=== PATIENT | male | born 1985 | race Caucasian/White ===

== ENCOUNTER 2016-05-18 07:58 | Outpatient (CLI) ==
[2016-01-30 21:09] VITALS: BMI 42.2
--- NOTE | 2016-05-18 08:28 | DI ---
EXAM: Five views of the lumbar spine HISTORY: Back pain with history of posterior fusion hardware. COMPARISON: MRI lumbar spine 08/17/[address] lumbar spine 05/05/2015 FINDINGS: There is posterior fusion hardware at L4-L5 and the particular screws demonstrating no vivian ency or displaced fracture. Discectomy changes are noted L4-L5 with disc spacer device in place. T here is no acute compression fracture or subluxation. The lumbosacral junction appears intact. Eckert inectomies changes are present at the level of posterior fusion. There is scattered minimal facet a rthropathy in the lower lumbar spine. No lytic or blastic lesion is present. The soft tissues are unremarkable. IMPRESSION: 1. Postoperative changes with interbody fusion at L4-L5 with no evidence of hardware fracture or lo osening. 2. Mild facet arthropathy in the lower lumbar spine with no compression fracture or subluxation.
[2016-05-18 08:34] LABS: BASOPHILS # (AUTO) 0.1 K/uL (0-0.2); BASOPHILS % (AUTO) 0.5 % (0.0-3.0); EOSINOPHILS # (AUTO) 0.3 K/ul (0.0-0.7); EOSINOPHILS % (AUTO) 2.9 % (0.0-7.0); HEMATOCRIT 47.3 % (42.0-52.0); HEMOGLOBIN 16.1 g/dl (14.0-18.0); IMMATURE GRANULOCYTE % (AUTO) 0.9 % (0.0-5.0); LYMPHOCYTES # (AUTO) 3.6 K/uL (0.60-3.4); LYMPHOCYTES % (AUTO) 30.5 (10.0-50.0); MEAN CORPUSCULAR HEMOGLOBIN 30.3 pg (27.0-31.0); MEAN CORPUSCULAR VOLUME 89.1 fl (80.0-94.0); MONOCYTES # (AUTO) 0.7 K/uL (0.4-2.0); MONOCYTES % (AUTO) 6.3 (0-10); NEUTROPHILS # (AUTO) 6.9 K/ul (2.0-6.9); NEUTROPHILS % (AUTO) 58.9; PLATELET COUNT 274 10^3/uL (140-440); RED BLOOD COUNT 5.31 10^6/ul (4.70-6.10); WHITE BLOOD COUNT 11.67 K/ul (4.2-10.2)
[2016-05-18 08:42] LABS: PARTIAL THROMBOPLASTIN TIME 24.6 SEC (23.9-40.0); PROTHROMBIN TIME 9.9 SEC (9.3-11.0)
[2016-05-18 09:08] LABS: ALBUMIN 3.6 g/dL (3.4-5.0); ALBUMIN/GLOBULIN RATIO 0.84; ANION GAP 13.1; BILIRUBIN,TOTAL 0.56 mg/dL (0.00-1.20); BUN/CREATININE RATIO 15.11; CALCIUM 9.5 mg/dL (8.2-10.2); CHOL/HDL RATIO 8.8 (4.5-6.4); CREATININE 0.86 mg/dL (0.60-1.10); POTASSIUM 4.1 mmol/L (3.5-5.1); TOTAL PROTEIN 7.9 g/dL (6.4-8.2)
== END 2016-05-18 07:59 | disposition home or self-care (01) ==
LOC: RAD 07:58
PROVIDERS: ATTEND Nurse Practitioner Family
DX: M51.36 Other intervertebral disc degeneration, lumbar region (principal); M54.5 Low back pain; I10 Essential (primary) hypertension; E66.9 Obesity, unspecified; Z91.89 Other specified personal risk factors, not elsewhere classified
CPT/HCPCS: 36415; 80053; 80061; 84439; 84443; 85025; 85610; 85730

== ENCOUNTER 2016-05-21 08:30 | Outpatient (CLI) ==
[2016-01-30 21:09] VITALS: BMI 42.2
--- NOTE | 2016-05-21 11:52 | MRI ---
EXAM: MRI lumbar spine without and with IV contrast. DATE: 05/21/2016. HISTORY: Low back pain. TECHNIQUE: Sagittal and axial T1W and T2W sequences of the lumbar spine along with sagittal IR and coronal T2W sequences were obtained using 1.5 Yue magnet. CONTRAST: Omniscan - 20 ml IV. COMPARISON: L-spine series 05/18/2016. MRI L-spine 08/17/2015. CT L-spine 05 May 2015. FINDINGS: The alignment of the lumbar spine is normal. Previous discectomy, interbody spacer and b ilateral transpedicular screw fixation are evident at L4-5. There is a 2.5 mm anterior subluxation of S1 relative to L5. No other subluxation, acute fracture, osseous malignancy, or pars interarticu david defect is identified. Lumbar vertebra are normal in height. A T2W/T1W bright, 6.4 mm focus i n the L2 body is likely a benign hemangioma. Nonfused intervertebral discs are normal in height. N o sacral fracture or stress reaction is apparent. SI joints are unremarkable. Conus medullaris ter minates at T12-L1. Visible spinal cord reveals no syrinx, cord edema, myelomalacia, or neoplasm. N o abnormal contrast enhancement is identified within the spinal cord, nerve roots, vertebral bodies or intervertebral discs. No retroperitoneal lymphadenopathy, paraspinal mass, or aortic aneurysm is detected. Psoas muscles are normal. There is moderate bilateral posterior paraspinal muscle atrophy at the L5 and S1 levels . Visible portions of the liver, spleen, adrenal glands and kidneys reveal no definitive abnormalit y. Segmental analysis: T12-L1: Normal. L1-2: Normal. L2-3: Dorsal epidural fat causes narrowing the thecal sac and minor central canal stenosis. Each f oramen is patent. L3-4: Minimal posterior to foraminal disc bulge, mild bilateral facet arthropathy, mild ligamentum flavum hypertrophy cause mild central canal stenosis and mild bilateral foraminal encroachment. L4-5: S/P discectomy, interbody spacer, bilateral transpedicular screw fixation, partial left facet resection, partial resection of the L3 spinous process and posterior osseous fusion. No central ca nal stenosis or foraminal stenosis. L5-S1: Minimal anterior subluxation of S1, small pseudodisc bulge, epidural fat, and mild facet art hropathy cause mild thecal sac narrowing and minimal/mild bilateral foraminal stenoses. IMPRESSIONS: 1. Lumbar spine surgical changes at L4-5 - similar to August 2015. 2. Minimal L2-3, mild L3-4, and mild L5-S1 central canal stenosis. 3. Multilevel foraminal narrowing (minimal/mild). 4. Benign hemangioma in the L2 vertebral body.
== END 2016-05-21 08:31 | disposition home or self-care (01) ==
LOC: RAD 08:30
PROVIDERS: ATTEND Nurse Practitioner Family
DX: M54.5 Low back pain (principal)

== ENCOUNTER 2016-05-31 11:51 | Outpatient (CLI) ==
[2016-01-30 21:09] VITALS: BMI 42.2
--- NOTE | 2016-05-31 13:24 | DI ---
EXAM: CHEST FRONTAL AND LATERAL VIEWS HISTORY: Hypertension. COMPARISON: 11/22/2014 FINDINGS: Heart size and mediastinal contour remain within normal limits. No acute infiltrates. Normal vascularity with no pleural fluid or pneumothorax. The bony thorax has no acute finding. IMPRESSION: No acute process.
== END 2016-05-31 11:52 | disposition home or self-care (01) ==
LOC: CAR 11:51
PROVIDERS: ATTEND Nurse Practitioner Family
DX: E78.5 Hyperlipidemia, unspecified (principal); I10 Essential (primary) hypertension; M54.5 Low back pain; M51.36 Other intervertebral disc degeneration, lumbar region; S33.100 Subluxation of unspecified lumbar vertebra
CPT/HCPCS: 93005; 93010

== ENCOUNTER 2016-06-25 06:49 | Outpatient (CLI) ==
[2016-01-30 21:09] VITALS: BMI 42.2
--- NOTE | 2016-06-28 09:10 | ECHO2D ---
Date of Exam: 06/25/2016 Ordering Physician: DR. BALDERAS Reason for Echo: CHEST PAIN, PALPITATIONS M-Mode Normal Adult Results LV Dimensions Normal Adult Results AoV Opening excursions >1.6 >1.6 LVEDD-base- 3.5-5.8 4.8 Ao root dimensions 2.0-3.7 3.3 LVESD-base- 3.1-4.6 L. Atrium dimensions 1.9-3.8 3.4 Post. Wall thickness 0.8-1.1 1.1 IV septum (thickness) 0.7-1.2 1.2 Post. Wall excursion 0.72-1.3 NORMAL Septal motion NORMAL Systolic motion R. Ventricular cavity 1.5-2.0 NORMAL LVEF 60% 56% Paradoxical septal wall motion NORMAL 2-D :2-D M Mode Echocardiogram was performed using apical four chamber and left parasternal long and short axis views. Mitral, tricuspid and aortic valves appear to be normal. Contractility of the left ventricle seems to be normal, so is the cavity size. Left atrial cavity size and aortic root appear to be normal. There is no pericardial effusion. There is no thrombus noted in the left ventricular or left aortic cavity. No mitral valve prolapse noted. M-MODE: MV: NORMAL AV: NORMAL TV: NORMAL PV: CHAMBER SIZE: NORMAL WALL MOTION: NORMAL PERICARDIUM: NORMAL INTERPRETATION: 1. NORMAL LEFT VENTRICULAR CONTRACTILITY 2. NORMAL VALVES MTDD
== END 2016-06-25 06:50 | disposition home or self-care (01) ==
LOC: CAR 06:49
PROVIDERS: ATTEND Internal Medicine
DX: R07.9 Chest pain, unspecified (principal); R00.2 Palpitations

== ENCOUNTER 2016-06-27 06:28 | Outpatient (CLI) ==
[2016-01-30 21:09] VITALS: BMI 42.2
[2016-06-27] MEDS: DOBUTAMINE 250 ML IV ONE (07:10)
[2016-06-27] MEDS: ATROPINE SULFATE PFS ONE (08:09)
--- NOTE | 2016-06-28 09:32 | DOBSTECHO ---
Ordering Physician: DR. ANGIE WAGGONER [facility] Date of Test: 06/27/2016 Reason for Examination: CHEST PAIN, PALPITATIONS, HYPERTENSION Cardiac History: Current Medications: SIMVASTATIN, LISINOPRIL, HYDROCODONE/ACETAMINOPHEN, BACLOFEN Physical Findings: Height: 71" Weight: 320 GLAUCOMA: NO Resting EKG: Target Heart Rate: 162 / 191 OXYGEN SATURATION: 97% AT REST PRE TEST ST Segment Stage Time HR BPM BP mmhg Rhythm +/- Up Down Comments/Symptoms Control Sitting 70 110/88 SR X NONE Dobutamine 250mg/D5W 5cmg/KG/mn 10cmg/KG/mn 3" 96 150/66 SR X NONE 15cmg/KG/mn 2" 102 SR X NONE 20cmg/KG/mn 2" 148 SR X NONE 25cmg/KG/mn 00:17 152 140/60 SR X NONE 30cmg/KG/mn 35cmg/KG/mn 40cmg/KG/mn Time: 3" HR B/P Time: 10" HR B/P Time: HR B/P Recovery 82 148/76 Recovery 76 Recovery Total Time: 7 MINUTES AND 17 SECONDS Duration of Exercise: 7 MINUTES AND 17 SECONDS Maximum Heart Rate Reached: 152 Interpretation: 1. TEST NEGATIVE FOR ISCHEMIC ST-T WAVE CHANGES 2. NO CHEST PAIN OR DISCOMFORT 3. LEFT VENTRICULAR CONTRACTILITY NORMAL WITH DOBUTAMINE INFUSION AND AT REST MTDD
--- NOTE | 2016-06-28 09:37 | ECHOSTRESS ---
Date of Exam: 06/27/2016 Ordering Physician: DR BALDERAS, [facility]- DR. ADAMS, SHIV MCNEAL, AND CLARISSA FULLER Reason for Echo: CHEST PAIN, PALPITATIONS, DOBUTAMINE STRESS=NO ISCHEMIA M-Mode Normal Adult Results LV Dimensions Normal Adult Results AoV Opening excursions >1.6 LVEDD-base- 3.5-5.8 Ao root dimensions 2.0-3.7 LVESD-base- 3.1-4.6 L. Atrium dimensions 1.9-3.8 Post. Wall thickness 0.8-1.1 IV septum (thickness) 0.7-1.2 Post. Wall excursion 0.72-1.3 Septal motion Systolic motion R. Ventricular cavity 1.5-2.0 LVEF 60% Paradoxical septal wall motion 2-D: NORMAL LEFT VENTRICULAR CONTRACTILITY RESTING AND WITH DOBUTAMINE INFUSION M-MODE: MV: AV: TV: PV: CHAMBER SIZE: WALL MOTION: NORMAL LEFT VENTRICULAR CONTRACTILITY RESTING AND WITH DOBUTAMINE INFUSION PERICARDIUM: INTERPRETATION: 1. NORMAL LEFT VENTRICULAR CONTRACTILITY RESTING AND WITH DOBUTAMINE INFUSION MTDD
== END 2016-06-27 06:29 | disposition home or self-care (01) ==
LOC: CAR 06:28
PROVIDERS: ATTEND Internal Medicine
DX: R07.9 Chest pain, unspecified (principal); R00.2 Palpitations

== ENCOUNTER → 2016-08-08 | Outpatient (POV) ==
[2016-01-30 21:09] VITALS: BMI 42.2
== END ==
LOC: OUTPT 00:01
PROVIDERS: ATTEND Otolaryngology
DX: H91.90 Unspecified hearing loss, unspecified ear (principal)
CPT/HCPCS: 92557; 92567

== ENCOUNTER 2016-12-03 14:03 | Outpatient (CLI) ==
[2016-01-30 21:09] VITALS: BMI 42.2
[2016-12-03 14:08] LABS: BASOPHILS # (AUTO) 0.1 K/uL (0-0.2); BASOPHILS % (AUTO) 0.5 % (0.0-3.0); EOSINOPHILS # (AUTO) 0.2 K/ul (0.0-0.7); EOSINOPHILS % (AUTO) 1.8 % (0.0-7.0); HEMATOCRIT 45.8 % (42.0-52.0); HEMOGLOBIN 15.6 g/dl (14.0-18.0); IMMATURE GRANULOCYTE % (AUTO) 0.8 % (0.0-5.0); LYMPHOCYTES # (AUTO) 3.6 K/uL (0.60-3.4); LYMPHOCYTES % (AUTO) 30.1 (10.0-50.0); MEAN CORPUSCULAR HEMOGLOBIN 30.4 pg (27.0-31.0); MEAN CORPUSCULAR HGB CONC 34.1 (31.8-35.4); MEAN CORPUSCULAR VOLUME 89.3 fl (80.0-94.0); MONOCYTES # (AUTO) 0.7 K/uL (0.4-2.0); MONOCYTES % (AUTO) 6.1 (0-10); NEUTROPHILS # (AUTO) 7.3 K/ul (2.0-6.9); NEUTROPHILS % (AUTO) 60.7; PLATELET COUNT 310 10^3/uL (140-440); RED BLOOD COUNT 5.13 10^6/ul (4.70-6.10); WHITE BLOOD COUNT 11.99 K/ul (4.2-10.2)
[2016-12-03 15:02] LABS: ALBUMIN 3.8 g/dL (3.4-5.0); ALBUMIN/GLOBULIN RATIO 0.9; ANION GAP 17.4; BILIRUBIN,TOTAL 0.45 mg/dL (0.00-1.20); BUN/CREATININE RATIO 11.62; CALCIUM 9.9 mg/dL (8.2-10.2); CHOL/HDL RATIO 5.9 (4.5-6.4); CREATININE 0.86 mg/dL (0.60-1.10); POTASSIUM 4.4 mmol/L (3.5-5.1)
== END 2016-12-03 14:04 | disposition home or self-care (01) ==
LOC: LAB 14:03
PROVIDERS: ATTEND Nurse Practitioner Family
DX: I10 Essential (primary) hypertension (principal)
CPT/HCPCS: 36415; 80053; 80061; 84439; 84443; 85025

== ENCOUNTER 2016-12-04 10:00 | Outpatient (CLI) ==
[2016-01-30 21:09] VITALS: BMI 42.2
== END 2016-12-04 10:01 | disposition home or self-care (01) ==
LOC: LAB 10:00
PROVIDERS: ATTEND Nurse Practitioner Family
DX: R73.09 Other abnormal glucose (principal)
CPT/HCPCS: 36415; 82947

== ENCOUNTER 2016-12-07 08:58 | Outpatient (CLI) ==
[2016-01-30 21:09] VITALS: BMI 42.2
--- NOTE | 2016-12-07 10:00 | MRI ---
EXAM: MRI brain without IV contrast. DATE: 07 December 2016. HISTORY: Headaches syndrome. TECHNIQUE: Sagittal T1W, axial T2W, axial FLAIR, axial T1W, axial DWI, and coronal T2W GRE sequence s of the brain were obtained using 1.2 Yue magnet. No IV contrast. COMPARISON: None. FINDINGS: The ventricles, cisterns, and subarachnoid spaces are normal in size and configuration. No midline shift, mass effect or abnormal extra-axial fluid collection is apparent. No acute infarc t, hemorrhage or neoplasm is identified. Minor area of T2W/FLAIR hyperintensity is observed in the white matter abutting the right lateral ventricle near the atrium. The elliott - white matter differen tiation is normal. The 7th/8th cranial nerve complexes, cerebellopontine angles, brainstem, and vis ible cervical spinal cord are normal. There is no cerebellar tonsillar ectopia. The pituitary glan d is normal in size and signal. Corpus callosum is normal in size and configuration. Flow voids ar e present in the major intracranial arteries and in the dural venous sinuses. No aneurysm, AVM or d ural venous sinus thrombosis is apparent. No orbit abnormality is identified. The mastoid air cell s are unremarkable. There is mucosal thickening in multiple ethmoid air cells and partial opacifica tion of some anterior ethmoid air cells bilaterally. Minor mucosal thickening is also demonstrated in the right and left side of the sphenoid sinus. The adenoid tissues are mildly prominent. No nec k mass or lymphadenopathy is detected. No calvarial neoplasm or acute fracture is evident. IMPRESSIONS: 1. 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 DDX: Demyelinating disease, small vessel disease, vasculitis, sequela of infection. 2. No acute infarct, hemorrhage, mass or hydrocephalus. 3. Bilateral ethmoid and sphenoid sinus disease. 4. Mild adenoid hypertrophy appears benign.
== END 2016-12-07 08:59 | disposition home or self-care (01) ==
LOC: RAD 08:58
PROVIDERS: ATTEND Nurse Practitioner Family
DX: G44.89 Other headache syndrome (principal)

== ENCOUNTER 2017-02-06 13:06 | Outpatient (CLI) ==
[2016-01-30 21:09] VITALS: BMI 42.2
[2017-02-06 13:13] LABS: BASOPHILS # (AUTO) 0.1 K/uL (0-0.2); BASOPHILS % (AUTO) 0.5 % (0.0-3.0); EOSINOPHILS # (AUTO) 0.3 K/ul (0.0-0.7); EOSINOPHILS % (AUTO) 2.2 % (0.0-7.0); HEMATOCRIT 45.5 % (42.0-52.0); HEMOGLOBIN 15.4 g/dl (14.0-18.0); IMMATURE GRANULOCYTE % (AUTO) 0.9 % (0.0-5.0); LYMPHOCYTES # (AUTO) 3.5 K/uL (0.60-3.4); LYMPHOCYTES % (AUTO) 29.2 (10.0-50.0); MEAN CORPUSCULAR HEMOGLOBIN 30.4 pg (27.0-31.0); MEAN CORPUSCULAR HGB CONC 33.8 (31.8-35.4); MEAN CORPUSCULAR VOLUME 89.7 fl (80.0-94.0); MONOCYTES # (AUTO) 0.8 K/uL (0.4-2.0); MONOCYTES % (AUTO) 6.3 (0-10); NEUTROPHILS # (AUTO) 7.2 K/ul (2.0-6.9); NEUTROPHILS % (AUTO) 60.9; PLATELET COUNT 296 10^3/uL (140-440); RED BLOOD COUNT 5.07 10^6/ul (4.70-6.10); WHITE BLOOD COUNT 11.84 K/ul (4.2-10.2)
[2017-02-06 13:25] LABS: ALBUMIN 3.5 g/dL (3.4-5.0); ALBUMIN/GLOBULIN RATIO 0.81; ANION GAP 14.2; BILIRUBIN,TOTAL 0.42 mg/dL (0.00-1.20); BUN/CREATININE RATIO 13.09; CALCIUM 9.8 mg/dL (8.2-10.2); CHOL/HDL RATIO 6.8 (4.5-6.4); CREATININE 0.84 mg/dL (0.60-1.10); POTASSIUM 4.2 mmol/L (3.5-5.1); TOTAL PROTEIN 7.8 g/dL (6.4-8.2)
== END 2017-02-06 13:07 | disposition home or self-care (01) ==
LOC: LAB 13:06
PROVIDERS: ATTEND Nurse Practitioner Family
DX: I10 Essential (primary) hypertension (principal)
CPT/HCPCS: 36415; 80053; 80061; 85025

== ENCOUNTER 2017-03-21 09:38 | Outpatient (CLI) ==
[2016-01-30 21:09] VITALS: BMI 42.2
[2017-03-21 10:17] LABS: ALBUMIN 3.5 g/dL (3.4-5.0); BILIRUBIN,DIRECT 0.16 mg/dL (0.00-0.30); BILIRUBIN,TOTAL 0.36 mg/dL (0.00-1.20); TOTAL PROTEIN 7.3 g/dL (6.4-8.2)
== END 2017-03-21 09:39 | disposition home or self-care (01) ==
LOC: LAB 09:38
PROVIDERS: ATTEND Psychiatry & Neurology Neurology
DX: R51 Headache (principal)
CPT/HCPCS: 36415; 80076

== ENCOUNTER 2017-03-22 04:43 | Emergency (ER) ==
[2017-03-22 04:50] VITALS: BP 141/89; TEMP 97.6; BMI 45.6
[2017-03-22] MEDS ORDERED: TORADOL IM STA (05:02)
--- NOTE | 2017-03-22 05:09 | ED.PDOC ---
General ED Provider: Dr. LEANNA ADAMS Chief Complaint: Chest Wall Injury/Pain Stated Complaint: Woke up with right lower chest, hurts to breath. sharp pain. no Injury. Time Seen by Physician: 05:10 Mode of Arrival: Walk-In Information Source: Patient Primary Care Provider: LEANNA ADAMS-[facility] Nursing and Triage Documentation Reviewed and Agree: Yes GI Complaint Exam - Abdominal Pain Complaint/Exam Onset: Sudden Symptoms Are: Still present Timing: Constant Initial Severity: Moderate Current Severity: Moderate Location of Pain: RUQ Character: Reports: Sharp Aggravating: Reports: Movement, Deep breaths Alleviating: Reports: None Associated Signs and Symptoms: Reports: Chest pain. Denies: Diaphoresis, Fever , Cough, Dizziness, Back pain, Constipation, Blood in stool, Dysuria, Urinary frequency, Decreased urine output, Decreased appetite, Discharge, Nausea, Vomiting, Diarrhea, Decreased activity AAA Risk Factors: Reports: None Cardiac Risk Factors: Reports: None Testicular Torsion Risk Factors: Reports: None Surgical Obstruction Risk Factors: Reports: None Related Surgical History: Reports: None Abdominal Findings: Absent: Pulsatile mass, Abdominal distention, Unequal femoral pulses, Rebound tenderness Differential Diagnoses: GB, Other (Pleurisy.) Review of Systems - Review Of Systems Constitutional: Reports: No symptoms Eyes: Reports: No symptoms Ears, Nose, Mouth, Throat: Reports: No symptoms Respiratory: Reports: No symptoms Cardiac: Reports: Chest pain GI: Reports: Abdominal pain : Reports: No symptoms Musculoskeletal: Reports: No symptoms Skin: Reports: No symptoms Neurological: Reports: No symptoms Endocrine: Reports: No symptoms Hematologic/Lymphatic: Reports: No symptoms All Other Systems: Reviewed and Negative Past Medical History - Past Medical History Previously Healthy: Yes Endocrine: Reports: None Cardiovascular: Reports: Hypertension Respiratory: Reports: None Hematological: Reports: None Gastrointestinal: Reports: None Genitourinary: Reports: Kidney stones Neuro/Psych: Reports: None Musculoskeletal: Reports: Arthritis Cancer: Reports: None - Surgical History General Surgical History: Reports: Other (DISCECTOMY AND SPINAL FUSION L4-L5) - Family History Family History: Reports: Unknown - Social History Smoking Status: Current every day smoker, Heavy tobacco smoker Smoking Cessation Counseling Time: > 3 min - 10 min Hx Substance Use: No Alcohol Screening: Occasionally - Immunizations Tetanus Shot up to Date: Yes Physical Exam - Physical Exam Appearance: Well-appearing, No pain distress, Well-nourished Eyes: YAMEL, EOMI, Conjunctiva clear ENT: Ears normal, Nose normal, Oropharynx normal Respiratory: Airway patent, Breath sounds clear, Breath sounds equal, Respirations nonlabored Cardiovascular: RRR, Pulses normal, No rub, No murmur GI/: Soft, No masses, Bowel sounds normal, No Organomegaly, Tender (rt lower rbs,) Musculoskeletal: Normal strength, ROM intact, No edema, No calf tenderness Skin: Warm, Dry, Normal color Neurological: Sensation intact, Motor intact, Reflexes intact, Cranial nerves intact, Alert, Oriented Psychiatric: Affect appropriate, Mood appropriate Interpretation - Radiology Interpretation Radiology Interpretation By: Radiologist Radiology Results: Negative Exam Interpreted: CT Scan Critical Care Note - Critical Care Note Total Time (mins): 20 Course - Course Hematology/Chemistry: 03/22/17 05:45 03/22/17 05:45 Orders, Labs, Meds: Lab Review 03/22/17 03/22/17 03/22/17 05:45 05:45 05:45 WBC 10.71 H RBC 4.95 Hgb 15.0 Hct 44.3 MCV 89.5 MCH 30.3 MCHC 33.9 RDW Coeff of Carlotta 12.5 Plt Count 262 Immature Gran % (Auto) 0.6 Neut % (Auto) 57.1 Lymph % (Auto) 33.5 [place] % (Auto) 6.7 Eos % (Auto) 1.6 Baso % (Auto) 0.5 Immature Gran # (Auto) 0.1 Neut # 6.1 Lymph # 3.6 H [place] # 0.7 Eos # 0.2 Baso # 0.1 D-Dimer (Manual) 257.39 Sodium 137 Potassium 4.4 Chloride 102 Carbon Dioxide 24 Anion Gap 15.4 BUN 10 Creatinine 0.82 Estimated GFR (MDRD) 110.00 BUN/Creatinine Ratio 12.19 Glucose 100 Calcium 9.3 Total Bilirubin 0.56 AST 19 ALT 31 Alkaline Phosphatase 81 Total Protein 7.8 Albumin 3.6 Globulin 4.2 Albumin/Globulin Ratio 0.86 Orders Category Date Time Status CBC W/ AUTO DIFF Stat LAB 03/22/17 05:45 Completed COMPREHENSIVE METABOLIC PANEL Stat LAB 03/22/17 05:45 Completed D-DIMER Stat LAB 03/22/17 05:45 Completed Ketorolac Tromethamine [Toradol] MEDS 03/22/17 05:02 Discontinued 60 mg IM ONCE STA CT ABDOMEN/PELVIS WO CONTRAST Stat RADS 03/22/17 05:02 Taken Medications Discontinued Medications Generic Name Dose Route Start Last Admin Trade Name Yrn PRN Reason Stop Dose Admin Ketorolac Tromethamine 60 mg 03/22/17 05:02 03/22/17 05:08 Toradol IM 03/22/17 05:03 60 mg ONCE STA Administration Vital Signs: Temp Pulse Resp BP Pulse Ox 03/22/17 04:46 97.6 F 93 H 22 141/89 H 97 Departure - Departure Time of Disposition: 06:23 Disposition: HOME SELF-CARE Discharge Problem: Chest wall pain Instructions: Chest Wall Pain (ED) Condition: Good Pt referred to PMD for follow-up: Yes Additional Instructions: rest Hot Pack If not better needs further evaluation Prescriptions: Ketorolac Tromethamine [Toradol] 10 mg PO Q8H #10 tablet Prednisone 10 mg PO BIDWM #14 tablet Allergies/Adverse Reactions: Allergies tramadol Allergy (Unverified 03/22/17 05:04) Unknown Penicillins Adverse Reaction (Verified 03/22/17 05:04) mountain dew Allergy (Severe, Uncoded 03/22/17 05:04) face swelling Patient to notify drugstore Home Medications: Ambulatory Orders Baclofen 10 mg PO TID 01/30/16 Hydrocodone/Acetaminophen [Lortab 10-325 mg Tablet] 10 - 325 mg PO TID 01/30/16 Ondansetron HCl [Zofran] 4 mg PO BID PRN 12/05/16 Divalproex Sodium [Depakote] 500 mg PO DAILY 01/30/17 Ketorolac Tromethamine [Toradol] 10 mg PO Q8H #10 tablet 03/22/17 Prednisone 10 mg PO BIDWM #14 tablet 03/22/17 Disposition Discussed With: Patient
[2017-03-22 05:48] LABS: BASOPHILS # (AUTO) 0.1 K/uL (0-0.2); BASOPHILS % (AUTO) 0.5 % (0.0-3.0); EOSINOPHILS # (AUTO) 0.2 K/ul (0.0-0.7); EOSINOPHILS % (AUTO) 1.6 % (0.0-7.0); HEMATOCRIT 44.3 % (42.0-52.0); IMMATURE GRANULOCYTE % (AUTO) 0.6 % (0.0-5.0); LYMPHOCYTES # (AUTO) 3.6 K/uL (0.60-3.4); LYMPHOCYTES % (AUTO) 33.5 (10.0-50.0); MEAN CORPUSCULAR HEMOGLOBIN 30.3 pg (27.0-31.0); MEAN CORPUSCULAR HGB CONC 33.9 (31.8-35.4); MEAN CORPUSCULAR VOLUME 89.5 fl (80.0-94.0); MONOCYTES # (AUTO) 0.7 K/uL (0.4-2.0); MONOCYTES % (AUTO) 6.7 (0-10); NEUTROPHILS # (AUTO) 6.1 K/ul (2.0-6.9); NEUTROPHILS % (AUTO) 57.1; PLATELET COUNT 262 10^3/uL (140-440); RED BLOOD COUNT 4.95 10^6/ul (4.70-6.10); WHITE BLOOD COUNT 10.71 K/ul (4.2-10.2)
[2017-03-22 06:10] LABS: ALBUMIN 3.6 g/dL (3.4-5.0); ALBUMIN/GLOBULIN RATIO 0.86; ANION GAP 15.4; BILIRUBIN,TOTAL 0.56 mg/dL (0.00-1.20); BUN/CREATININE RATIO 12.19; CALCIUM 9.3 mg/dL (8.2-10.2); CREATININE 0.82 mg/dL (0.60-1.10); POTASSIUM 4.4 mmol/L (3.5-5.1); TOTAL PROTEIN 7.8 g/dL (6.4-8.2)
--- NOTE | 2017-03-22 06:21 | CT ---
EXAM: CT scan abdomen pelvis without contrast HISTORY: Right upper quadrant pain COMPARISON: NONE FINDINGS: Contiguous axial images obtained through the abdomen pelvis without contrast utilizing 3-m m collimation. Sagittal and coronal reconstructions were imaged and reviewed. The visualized lung b ases are clear. The gallbladder is fluid filled without cholelithiasis. There is bilateral gynecoma stia. The liver, pancreas, spleen and adrenal glands have normal unenhanced CT appearance. The kidn eys are morphologically normal. There is a normal appendix. There is a small umbilical hernia conta ining only fat. The prostate gland is normal in size. There is no free fluid or inflammatory change s.. Postoperative changes are seen within the lower lumbar spine. IMPRESSION: No acute intra-abdominal findings.
== END 2017-03-22 06:25 | disposition home or self-care (01) ==
LOC: ED 04:43
DX: R07.89 Other chest pain (principal); R10.11 Right upper quadrant pain; I10 Essential (primary) hypertension; F17.210 Nicotine dependence, cigarettes, uncomplicated
CPT/HCPCS: 36415; 80053; 85025; 85379; 96372; 99283

== ENCOUNTER 2017-09-04 10:12 | Outpatient (CLI) ==
--- NOTE | 2017-09-04 13:13 | DI ---
EXAM: Three views of the lumbar spine. History: Spinal stenosis. Comparison: Lumbar spine radiograph 05/18/2016 Findings: No acute fracture or subluxation. Stable and grossly intact posterior fusion hardware at L4-L5. Disc space heights are relatively preserved. Impression: No acute findings. Stable and intact hardware. No change compared to the prior study.
--- NOTE | 2017-09-04 13:15 | DI ---
Exam: Two views of the left hip. Comparison: CT abdomen pelvis performed 03/22/2017. Reason for exam: Osteoarthritis. FINDINGS: No acute fracture or malalignment. The femoral head articulates with the acetabulum. Ther e is mild degenerative disease with osteophyte formation. No unexplained calcific soft tissue densit y or radiopaque retained foreign body. Impression: No acute fracture or dislocation in the left hip
--- NOTE | 2017-09-04 13:16 | DI ---
EXAM: Radiographs, right hip HISTORY: Right hip osteoarthritis. COMPARISON: None available. TECHNIQUE: Two views. FINDINGS: Bone mineralization is normal. No fracture or dislocation identified. Right hip joint sp neda is maintained. There is mild spurring off the femoral head and superior acetabulum. No erosions are seen. Lower lumbar fusion changes are incompletely imaged. Soft tissues are unremarkable. IMPRESSION: Mild right hip osteoarthritis.
== END 2017-09-04 10:13 | disposition home or self-care (01) ==
LOC: RAD 10:12
PROVIDERS: ATTEND Pain Medicine Interventional Pain Medicine
DX: M48.061 Spinal stenosis, lumbar region without neurogenic claudication (principal); M99.63 Osseous and subluxation stenosis of intervertebral foramina of lumbar region; M51.36 Other intervertebral disc degeneration, lumbar region; M51.37 Other intervertebral disc degeneration, lumbosacral region; M43.17 Spondylolisthesis, lumbosacral region; M47.816 Spondylosis without myelopathy or radiculopathy, lumbar region; M47.817 Spondylosis without myelopathy or radiculopathy, lumbosacral region; M96.1 Postlaminectomy syndrome, not elsewhere classified; M16.0 Bilateral primary osteoarthritis of hip

== ENCOUNTER 2017-09-12 12:22 | Outpatient (CLI) ==
--- NOTE | 2017-09-12 15:38 | DI ---
Exam: Single view of the chest with four views of the right ribs. Comparison: Chest x-ray performed 05/31/2016. Reason for exam: Pain in thoracic spine. FINDINGS: No pneumothorax, pleural effusion, or focal consolidation. The cardiac silhouette is not enlarged. The imaged osseous structures appear grossly unremarkable without acute fracture. No disp laced right-sided rib fractures are seen. Impression: 1. No acute cardiopulmonary process. 2. No displaced right-sided rib fractures
--- NOTE | 2017-09-12 15:42 | DI ---
EXAM: Thoracic spine radiographs. HISTORY: Back pain. COMPARISON: None available. TECHNIQUE: Frontal, lateral and swimmer's views. FINDINGS: The normal curvature and alignment are maintained. Vertebral body and intervertebral disc heights are normal. No fracture or subluxation seen. Adjacent soft tissues are unremarkable. IMPRESSION: No acute abnormality of the thoracic spine.
== END 2017-09-12 12:23 | disposition home or self-care (01) ==
LOC: RAD 12:22
PROVIDERS: ATTEND Family Medicine
DX: M54.6 Pain in thoracic spine (principal); R06.02 Shortness of breath; W19.XXXA Unspecified fall, initial encounter

== ENCOUNTER 2017-11-18 09:51 | Emergency (ER) ==
[2017-11-18 09:55] VITALS: TEMP 98.5; BMI 44.1
--- NOTE | 2017-11-18 10:00 | ED.PDOC ---
General ED Provider: Dr. TERESE PEDERSON Chief Complaint: Back Pain Stated Complaint: Low Back pain. States yesterday twisted trunk and low back and felt low back pop. Since then has had pain in lower back and concerned over hardware from prev surgery. Clifton not want analgesics as he has meds from home. Time Seen by Physician: 10:00 Mode of Arrival: Walk-In Information Source: Patient Exam Limitations: No limitations Primary Care Provider: ALMA DAMICO Nursing and Triage Documentation Reviewed and Agree: Yes Does patient meet sepsis criteria?: No System Inflammatory Response Syndrome: Not Applicable Sepsis Protocol: For patient's 13 years and over: Temp is 96.8 and below OR 101 and greater Pulse >90 BPM Resp >20/minute Acutely Altered Mental Status Are patient's symptoms suggestive of a new infection, such as: -Pneumonia -Skin, Soft Tissue -Endocarditis -UTI -Bone, Joint Infection -Implantable Device -Acute Abdominal Infection -Wound Infection -Meningitis -Blood Stream Catheter Infection -Unknown Musculoskeletal Complaint Exam - Back Pain Complaint/Exam Mechanism of Injury: Reports: No known trauma Symptoms Are: Still present Timing: Constant Episodes Lasting: Hours Initial Severity: Moderate Current Severity: Moderate Location: Reports: Discrete Character: Reports: Sharp, Aching, Throbbing, Spasmodic Aggravating: Reports: Movements, Bending Alleviating: Reports: Rest Associated Signs and Symptoms: Reports: Tingling. Denies: Swelling, Redness, Bruising, Fever, Weakness, Numbness, Abdominal pain, Flank pain, Bladder incontinence, Bowel incontinence, Weight loss, Pain with weight bearing Related History: Reports: Previous back injury TAD Risk Factors: Reports: None AAA Risk Factors: Reports: None Cauda Equina Risk Factors: Reports: None Epidural Abcess Risk Factors: Reports: None Related Surgical History: Reports: Back Surgery, Fusion Focal Tenderness: Yes Paraspinal Muscle Tenderness: Yes Paraspinal Muscle Spasm: No Scoliosis: No Lordosis: No Kyphosis: No SLR Test: Right Negative, Left Negative Hip Motion Testing Pain: Right Negative, Left Negative Focal Weakness: Present: None Focal Sensory Loss: Present: None Gait: Present: Normal Differential Diagnoses: Herniated Disk, Strain Review of Systems - Review Of Systems Constitutional: Reports: No symptoms Eyes: Reports: No symptoms Ears, Nose, Mouth, Throat: Reports: No symptoms Respiratory: Reports: No symptoms Cardiac: Reports: No symptoms GI: Reports: No symptoms : Reports: No symptoms Musculoskeletal: Reports: No symptoms, Back pain Skin: Reports: No symptoms Neurological: Reports: No symptoms Endocrine: Reports: No symptoms Hematologic/Lymphatic: Reports: No symptoms All Other Systems: Reviewed and Negative Past Medical History - Past Medical History Previously Healthy: Yes Endocrine: Reports: None Cardiovascular: Reports: Hypertension Respiratory: Reports: None Hematological: Reports: None Gastrointestinal: Reports: None Genitourinary: Reports: Kidney stones Neuro/Psych: Reports: None Musculoskeletal: Reports: Arthritis Cancer: Reports: None - Surgical History General Surgical History: Reports: Other (DISCECTOMY AND SPINAL FUSION L4-L5) - Family History Family History: Reports: Unknown - Social History Smoking Status: Current every day smoker, Heavy tobacco smoker Hx Substance Use: No Alcohol Screening: Occasionally Physical Exam - Physical Exam Appearance: Well-appearing, No pain distress, Well-nourished Eyes: YAMEL, EOMI, Conjunctiva clear ENT: Ears normal, Nose normal, Oropharynx normal Respiratory: Airway patent, Breath sounds clear, Breath sounds equal, Respirations nonlabored Cardiovascular: RRR, Pulses normal, No rub, No murmur GI/: Soft, Nontender, No masses, Bowel sounds normal, No Organomegaly Musculoskeletal: Normal strength, ROM intact (Tender LS region but no radiculating features), No edema, No calf tenderness Skin: Warm, Dry, Normal color Neurological: Sensation intact, Motor intact, Reflexes intact, Cranial nerves intact, Alert, Oriented Psychiatric: Affect appropriate, Mood appropriate Interpretation - Radiology Interpretation Radiology Interpretation By: Radiologist Exam Interpreted: CT Scan (intact fusion hardware.) Critical Care Note - Critical Care Note Total Time (mins): 0 Course - Course Orders, Labs, Meds: Orders Category Date Time Status CT LUMBAR SPINE W/O CONTRAST Stat RADS 11/18/17 10:07 Completed Vital Signs: Temp Pulse Resp BP Pulse Ox 11/18/17 11:07 160/94 H 11/18/17 09:53 98.5 F 94 H 16 163/113 H 97 Departure - Departure Time of Disposition: 11:06 Disposition: HOME SELF-CARE Discharge Problem: Low back pain Instructions: Low Back Strain (ED) Condition: Good Pt referred to PMD for follow-up: Yes (See Dr Damioc this week for reeval-if pain persists my need MRI scan) IPMP verified?: No Additional Instructions: Take home meds as needed Avoid strenuous activity If symptoms worsen return to ER Allergies/Adverse Reactions: Allergies tramadol Allergy (Verified 11/18/17 09:57) Unknown Penicillins Adverse Reaction (Verified 11/18/17 09:57) mountain dew Allergy (Severe, Uncoded 03/22/17 05:04) face swelling Patient to notify drugstore Home Medications: Ambulatory Orders Hydrocodone/Acetaminophen [Lortab 10-325 mg Tablet] 10 - 325 mg PO TID 01/30/16 Ondansetron HCl [Zofran] 4 mg PO BID PRN 12/05/16 Divalproex Sodium [Depakote] 750 mg PO DAILY 01/30/17 Sumatriptan Succinate 50 mg PO PRN PRN 11/18/17 Disposition Discussed With: Patient
--- NOTE | 2017-11-18 10:45 | CT ---
EXAM: CT of the lumbar spine without contrast History: Lower back pain. Comparison: CT lumbar spine 05/05/2015 Technique: Multiplanar CT images through the lumbar spine were obtained without the administration o f IV contrast Findings: No acute fracture or subluxation of the lumbar spine. Stable and grossly intact posterior fusion rik dware at L4-L5. T12-L1: No significant bony central canal stenosis or bony neural foraminal narrowing. L1-L2: No significant bony central canal stenosis or bony neural foraminal narrowing. L2-L3: No significant bony central canal stenosis or bony neural foraminal narrowing. L3-4: Small disc bulge effacing anterior thecal sac. The mild central canal stenosis. Moderate ron ateral bony neural foraminal narrowing secondary to ligamentous and facet hypertrophy. L4-L5: Evaluation limited due to streak artifact from hardware. No significant bony central canal st enosis. Moderate left and mild to moderate right bony neural foraminal narrowing secondary to ligame ntous and facet hypertrophy. L5-S1: No significant bony central canal stenosis. Moderate to severe bilateral bony neural foramin al narrowing secondary to ligamentous and facet hypertrophy. Scarring again seen within the posterior soft tissues. Impression: No acute osseous abnormality of the lumbar spine. Grossly intact posterior fusion hardw are at L4-L5. Level by level analysis as detailed above.
[2017-11-18 11:11] VITALS: BP 160/94
== END 2017-11-18 11:21 | disposition home or self-care (01) ==
LOC: ED 09:51
DX: M54.5 Low back pain (principal); X50.1XXA Overexertion from prolonged static or awkward postures, initial encounter; I10 Essential (primary) hypertension; F17.210 Nicotine dependence, cigarettes, uncomplicated
CPT/HCPCS: 99283

== ENCOUNTER 2018-08-11 13:53 | Emergency (ER) ==
[2018-08-11 14:01] VITALS: BP 147/82; TEMP 97.5; BMI 42.5
--- NOTE | 2018-08-11 15:23 | DI ---
EXAM: CHEST FRONTAL AND LATERAL VIEWS HISTORY: Cough. COMPARISON: 09/12/2017 FINDINGS: Heart size and mediastinal contour remain within normal limits. No acute infiltrates. Normal vascularity with no pleural fluid or pneumothorax. The bony thorax has no acute finding. IMPRESSION: No acute process.
--- NOTE | 2018-08-11 15:50 | ED.PDOC ---
General ED Provider: Dr. BRIGHT EZPEDA Chief Complaint: Cough Stated Complaint: cough Time Seen by Physician: 14:00 Mode of Arrival: Walk-In Information Source: Patient Exam Limitations: No limitations Primary Care Provider: CLARISSA FULLER Nursing and Triage Documentation Reviewed and Agree: Yes Does patient meet sepsis criteria?: No System Inflammatory Response Syndrome: Not Applicable Sepsis Protocol: For patient's 13 years and over: Temp is 96.8 and below OR 101 and greater Pulse >90 BPM Resp >20/minute Acutely Altered Mental Status Are patient's symptoms suggestive of a new infection, such as: -Pneumonia -Skin, Soft Tissue -Endocarditis -UTI -Bone, Joint Infection -Implantable Device -Acute Abdominal Infection -Wound Infection -Meningitis -Blood Stream Catheter Infection -Unknown Respiratory Complaint Exam - Respiratory Complaint/Exam Symptoms Are: Still present Timing: Intermittent Initial Severity: Mild Current Severity: Mild Location: Nose, Throat, Chest Character: Reports: Non-productive cough Aggravating: Reports: None Alleviating: Reports: None Associated Signs and Symptoms: Reports: URI Related History: Reports: Similar episode History of Healthcare-Acquired Pneumonia: No Related Surgical History: Reports: None Pulmonary Embolism Risk Factors: None Cardiac Risk Factors: Reports: None Pseudomonas Risk Factors: Reports: None Tuberculosis Risk Factors: Reports: None Status Asthmaticus Risk Factors: Reports: None Home Oxygen Use: No Recent Stress Test: No Recent Echo/LV Function: No Current Antibiotic Use: No Current Asthma Medication Use: No Respiratory Distress: None Inadequate Respiratory Effort: No Dysphagia Present: No Stridor Present: No JVD Present: No Accessory Muscle Use: No Retractions: Not Present Diminished Breath Sounds: No Sinus Tenderness: None Grunting Respirations: No Kussmaul Respirations: No Differential Diagnoses: Pneumonia, Bronchitis Review of Systems - Review Of Systems Constitutional: Reports: No symptoms Eyes: Reports: No symptoms Ears, Nose, Mouth, Throat: Reports: No symptoms Respiratory: Reports: Cough Cardiac: Reports: No symptoms GI: Reports: No symptoms : Reports: No symptoms Musculoskeletal: Reports: No symptoms Skin: Reports: No symptoms Neurological: Reports: No symptoms Endocrine: Reports: No symptoms Hematologic/Lymphatic: Reports: No symptoms All Other Systems: Reviewed and Negative Past Medical History - Past Medical History Previously Healthy: Yes Endocrine: Reports: None Cardiovascular: Reports: Hypertension Respiratory: Reports: None Hematological: Reports: None Gastrointestinal: Reports: None Genitourinary: Reports: Kidney stones Neuro/Psych: Reports: None Musculoskeletal: Reports: Arthritis Cancer: Reports: None - Surgical History General Surgical History: Reports: Other (DISCECTOMY AND SPINAL FUSION L4-L5) - Family History Family History: Reports: Unknown - Social History Smoking Status: Current every day smoker, Heavy tobacco smoker Hx Substance Use: No Alcohol Screening: Occasionally Physical Exam - Physical Exam Appearance: Well-appearing, No pain distress, Well-nourished Eyes: YAMEL, EOMI, Conjunctiva clear ENT: Ears normal, Nose normal, Oropharynx normal Respiratory: Airway patent, Breath sounds clear, Breath sounds equal, Respirations nonlabored Cardiovascular: RRR, Pulses normal, No rub, No murmur GI/: Soft, Nontender, No masses, Bowel sounds normal, No Organomegaly Musculoskeletal: Normal strength, ROM intact, No edema, No calf tenderness Skin: Warm, Dry, Normal color Neurological: Sensation intact, Motor intact, Reflexes intact, Cranial nerves intact, Alert, Oriented Psychiatric: Affect appropriate, Mood appropriate Critical Care Note - Critical Care Note Total Time (mins): 0 Course - Course Orders, Labs, Meds: Lab Review 08/11/18 15:00 Influ A Molecular Assay Negative by naat Influ B Molecular Assay Negative by naat Orders Category Date Time Status FLU A/B MOLECULAR Stat LAB 08/11/18 15:00 Completed MOLECULAR GROUP A STREP Stat LAB 08/11/18 15:00 Completed CHEST, 2 VIEWS PA & LAT Stat RADS 08/11/18 14:57 Completed Vital Signs: Temp Pulse Resp BP Pulse Ox 08/11/18 13:59 97.5 F L 91 H 20 147/82 H 96 Departure - Departure Time of Disposition: 15:50 Disposition: HOME SELF-CARE Discharge Problem: Cough Instructions: Chronic Cough (ED) Condition: Good Pt referred to PMD for follow-up: Yes IPMP verified?: No Additional Instructions: Please call your Family Physician as soon as possible to schedule a follow-up appointment. Allergies/Adverse Reactions: Allergies tramadol Allergy (Verified 08/11/18 14:01) Unknown Penicillins Adverse Reaction (Verified 08/11/18 14:01) mountain dew Allergy (Severe, Uncoded 03/22/17 05:04) face swelling Patient to notify drugstore Home Medications: Ambulatory Orders Hydrocodone/Acetaminophen [Lortab 10-325 mg Tablet] 10 - 325 mg PO TID 01/30/16 Ondansetron HCl [Zofran] 4 mg PO BID PRN 12/05/16
== END 2018-08-11 16:18 | disposition home or self-care (01) ==
LOC: ED 13:53
DX: R05 Cough (principal); I10 Essential (primary) hypertension; F17.210 Nicotine dependence, cigarettes, uncomplicated
CPT/HCPCS: 87502; 87651; 99283

== ENCOUNTER 2018-09-17 14:17 | Outpatient (CLI) | END 2018-09-17 14:18 | disposition home or self-care (01) | LOC: RHC-LAB 14:17 | PROVIDERS: ATTEND Nurse Practitioner Family | DX: J02.9 Acute pharyngitis, unspecified (principal) | CPT/HCPCS: 87651 ==